=== PATIENT | female | born 1960 | race Caucasian/White ===

== ENCOUNTER 2019-05-02 11:19 | Emergency (ER) | payer BC ==
[2019-05-02] MEDS: NS 0.9% 1000 ML** 1,000 ML IV ONE (13:33)
--- NOTE | 2019-05-02 13:35 | ED ---
Abdominal Pain/Female - HPI Summary HPI Summary: This patient is a 58 year old F presenting to [facility] with a chief complaint of left ABD pain that started about 3 weeks ago. The patient rates the pain 7/10 in severity. Symptoms aggravated by nothing. Symptoms alleviated by nothing. She initially came into her family medicine doctor's office for diverticulitis and left swollen leg. She had an X-ray taken last week with negative results. Her family medicine doctor told her she needed to come to ED to get CT scan. Patient reports fever, SEGAL, nausea, vomiting, constipation, and diarrhea. Patient notes the nausea is currently resolved. She denies neck pain. She does not smoke, use drugs, but drinks occasionally. - History of Current Complaint Chief Complaint: EDAbdPain Stated Complaint: ABD PAIN/HEADACHE/POSS YEAST INFECTION PER PT Time Seen by Provider: 05/02/19 13:01 Hx Obtained From: Patient ?: No Onset/Duration: Lasting Weeks - 3, Still Present Timing: Weeks - 3 Severity Currently: Severe Pain Intensity: 7 Pain Scale Used: 0-10 Numeric Location: Other - left sided Radiates: No Aggravating Factor(s): Nothing Alleviating Factor(s): Nothing Associated Signs and Symptoms: Positive: Fever, Constipation, Nausea - currently resolved, Vomiting, Diarrhea, Other: - positive - SEGAL negative - neck pain Allergies/Adverse Reactions: Allergies Allergy/AdvReac Type Severity Reaction Status Date / Time Sulfa (Sulfonamide Allergy Rash Verified 05/02/19 11:28 Antibiotics) Home Medications: Home Medications Ibuprofen TAB* [Motrin TAB* 600 MG] 600 mg PO Q8H PRN 05/02/19 [History Confirmed 05/02/19] PMH/Surg Hx/FS Hx/Imm Hx Previously Healthy: No Endocrine/Hematology History: Reports: Hx Diabetes Cardiovascular History: Denies: Hx Hypertension History: Denies: Hx Renal Disease EENT History: Denies: Hx Deafness - Surgical History Surgical History: Yes Surgery Procedure, Year, and Place: C-SECTIONS Infectious Disease History: No Infectious Disease History: Denies: Traveled Outside the [place] in Last 30 Days - Family History Known Family History: Positive: Cardiac Disease - father has CAD Negative: Diabetes - Social History Alcohol Use: Occasionally Hx Substance Use: No Substance Use Type: Reports: None Hx Tobacco Use: No Smoking Status (MU): Never Smoked Tobacco Review of Systems Positive: Fever Positive: Abdominal Pain - left-sided, Vomiting, Diarrhea, Nausea - currently resolved, Other - constipation Positive: Other - negative - neck pain Positive: Headache All Other Systems Reviewed And Are Negative: Yes Physical Exam - Summary Physical Exam Summary: VITAL SIGNS: Reviewed. GENERAL: Patient is a well-developed and nourished FEMALE who is lying comfortable in the stretcher. Patient is not in any acute respiratory distress. HEAD AND FACE: No signs of trauma. No ecchymosis, hematomas or skull depressions. No sinus tenderness. EYES: PERRLA, EOMI x 2, No injected conjunctiva, no nystagmus. EARS: Hearing grossly intact. Ear canals and tympanic membranes are within normal limits. MOUTH: Oropharynx within normal limits. NECK: Supple, trachea is midline, no adenopathy, no JVD, no carotid bruit, no c- spine tenderness, neck with full ROM. CHEST: Symmetric, no tenderness at palpation LUNGS: Clear to auscultation bilaterally. No wheezing or crackles. CVS: Regular rate and rhythm, S1 and S2 present, no murmurs or gallops appreciated. ABDOMEN: Soft, LLQ tenderness. No signs of distention. No masses palpated. Bowel sounds are normal. EXTREMITIES: FROM in all major joints, no edema, no cyanosis or clubbing. NEURO: Alert and oriented x 3. No acute neurological deficits. Speech is normal and follows commands. SKIN: Dry and warm. Triage Information Reviewed: Yes Vital Signs On Initial Exam: Initial Vitals Temp Pulse Resp BP Pulse Ox 98.7 F 92 16 197/90 96 05/02/19 11:25 05/02/19 11:25 05/02/19 11:25 05/02/19 11:25 05/02/19 11:25 Vital Signs Reviewed: Yes Diagnostics - Vital Signs Vital Signs Temp Pulse Resp BP Pulse Ox 05/02/19 11:25 98.7 F 92 16 197/90 96 - Laboratory Result Diagrams: 05/02/19 13:42 05/02/19 13:42 Lab Statement: Any lab studies that have been ordered have been reviewed, and results considered in the medical decision making process. - CT Abd/Pel CT Interpretation Completed By: Radiologist Summary of CT Findings: IMPRESSION: 1. NO EVIDENCE FOR ACUTE INTRA-ABDOMINAL ABNORMALITY. 2. THE RIGHT KIDNEY IS LOCATED WITHIN THE PELVIS. 3. MILD HEPATOMEGALY AND HEPATIC STEATOSIS. 4. SMALL HIATAL HERNIA. 5. FIBROID UTERUS. These findings were reviewed by Dr. Corbin. Re-Evaluation - Re-Evaluation First Eval Re-Evaluation Time: 13:30 Comment: I discussed results and discharge home with the patient. Abdominal Pain Fem Course/Dx - Course Course Of Treatment: This patient is a 58 year old F presenting to [facility] with a chief complaint of left ABD pain that started about 3 weeks ago. The patient rates the pain 7/10 in severity. Symptoms aggravated by nothing. Symptoms alleviated by nothing. She initially came into her family medicine doctor's office for diverticulitis and left swollen leg. She had an X-ray taken last week with negative results. Her family medicine doctor told her she needed to come to ED to get a CT scan. Patient reports fever, SEGAL, nausea, vomiting, constipation, and diarrhea. Patient notes the nausea is currently resolved. She denies neck pain. She does not smoke, use drugs, but drinks occasionally. Blood tests do not show any significant abnormalities except for the WBC of 12.5 , leukocytes of 144, and AST of 11. Urinalysis is contaminated but negative for UTI. In the ED course, the patient was given IV fluids and the patient did not require any pain medications. Abdominopelvic CT impression: No evidence for acute intra-or abdominal abnormality. The right kidney is located within the pelvis, mild hepatomegaly and hepatic steatosis. In the ED, the patient felt better. The blood work is found to be within normal limits, and the CT of the abdomen and pelvis showed no kidney stones or diverticulitis. Therefore the patient will be discharged home with follow-up with primary care physician. I discussed all the findings and test results with the patient. Patient was instructed to return to the emergency room immediately if any of the symptoms return or worsen. Plan of care was discussed with the patient. Patient understands and agrees. All questions were answered to the patients satisfaction. There were no further complaints or concerns. Lung exam before discharge: CTA B/L. Good air exchange. No wheezing or crackles heard. CVS: S1 and S2 present. No murmurs appreciated. Patient is alert and oriented x 3. Patient is hemodynamically stable. Patient will be discharged home with follow up with PCP in the next 2-3 days. - Diagnoses Provider Diagnoses: Lower abdominal pain Discharge - Sign-Out/Discharge Documenting (check all that apply): Patient Departure - discharge Patient Received Moderate/Deep Sedation with Procedure: No - Discharge Plan Condition: Stable Disposition: HOME Prescriptions: Hydrocodone/Acetaminophen [[place] 5-325 Tablet] 1 each PO Q8H PRN #10 tablet MDD 4 PRN Reason: Pain Patient Education Materials: Abdominal Pain (ED) Referrals: Maged Schumacher MD [Primary Care Provider] - 3 Days Additional Instructions: FOLLOW UP WITH YOUR PRIMARY CARE PROVIDER WITHIN 2-3 DAYS FOR ABDOMINAL PAIN NOTED TODAY. RETURN TO THE ED FOR ANY WORSENING OR NEW SYMPTOMS. - Billing Disposition and Condition Condition: STABLE Disposition: Home - Attestation Statements Document Initiated by Scribe: Yes Documenting Scribe: Kingsley Glez Provider For Whom Deborah is Documenting (Include Credential): Dr. Kings Corbin MD Scribe Attestation: Kingsley Banegas scrmikeed for Dr. Kings Corbin MD on 05/05/19 at 0733. Scribe Documentation Reviewed: Yes Provider Attestation: The documentation as recorded by the Kingsley foley accurately reflects the service I personally performed and the decisions made by me, Dr. Kings Corbin MD Status of Scribe Document: Viewed
[2019-05-02 13:51] LABS: Hematocrit 43 % (35-47); Hemoglobin 14.2 g/dL (12.0-16.0); Mean Corpuscular HGB Conc 33 g/dL (31-36); Mean Corpuscular Hemoglobin 29 pg (27-31); Mean Corpuscular Volume 86 fL (80-97); Mean Platelet Volume 7.7 fL (7.4-10.4); Platelet Count 337 10^3/uL (150-450); Red Blood Count 4.99 10^6 /uL (3.70-4.87); Red Cell Distribution Width 14 % (10-15); White Blood Count 12.5 10^3/uL (3.5-10.8)
[2019-05-02 14:00] LABS: ABS Basophils 0.1 10^3/ul (0-0.2); ABS Lymphocytes 1.8 10^3/ul (1.0-4.8); ABS Monocytes 0.6 10^3/ul (0-0.8); ABS Neutrophils 9.9 10^3/ul (1.5-7.7); Eosinophil % 0.3 %; Lymphocyte % 14.7 %; Nucleated Red Blood Cells % 0.1
[2019-05-02 14:12] LABS: Albumin 4.1 g/dL (3.2-5.2); BUN/Creatinine Ratio 12.7 (8-20); C Reactive Protein 1.99 mg/L (<8.01); Calcium 9.8 mg/dL (8.6-10.3); EGFR Non-African American 96.7 (>60); Magnesium 2.2 mg/dL (1.9-2.7); Potassium 3.9 mmol/L (3.5-5.0); Total Bilirubin 0.4 mg/dL (0.2-1.0); Total Protein 8.1 g/dL (6.4-8.9)
[2019-05-02 14:58] LABS: Urine Appearance Clear; Urine Bacteria Absent (Absent); Urine Bilirubin Negative (Negative); Urine Blood Negative (Negative); Urine Color Straw; Urine Glucose Negative (Negative); Urine Ketones Negative (Negative); Urine Nitrite Negative (Negative); Urine Protein Negative (Negative); Urine Red Blood Cell Absent (Absent); Urine Specific Gravity 1.005 (1.010-1.030); Urine Squamous Epithelial Cell Present (Absent); Urine Urobilinogen Negative (Negative); Urine White Blood Cell 1+(6-10/hpf) (Absent)
[2019-05-02] MEDS: Iodixanol* (CONTRAST) 320 MG/ML 100 ML SDV IV ONE (15:32)
[2019-05-02 17:07] VITALS: BP 176/82
--- NOTE | 2019-05-05 15:31 | PN ---
Progress Note - Progress Note Date of Service: 05/02/19 Note: Pt. seen in ED 05/02 for abd. pain. Urine culture growing >100k GBS. No report of urinary sxs. Pt. reportedly was recently treated with keflex and cipro. Attempted to call pt. today at 1528, message left. Suspect possible colonization. 1735: Pt. has not returned call. Will send rx for amoxicillin for potential UTI. Will send letter to pt. to return call to ED.
--- NOTE | 2019-05-05 18:31 | PN ---
Progress Note - Progress Note Date of Service: 05/05/19 Note: Spoke with this patient by phone at 1830 on 05/05/19 regarding results of urine culture. Urine culture indicates possible UTI. Prescription for amoxicillin was sent to patient's pharmacy at 1735 today. Apparently, prior attempts to reach patient by phone were not successful. Patient called back and was informed of both results and the presence of a prescription for amoxicillin at her pharmacy. Patient stated she did have itching with urination. Advised to take antibiotics and follow-up with primary care and will return to the ED for any new or worsening symptoms. Patient understands and approves our plan.
== END 2019-05-02 17:10 | disposition home or self-care (01) ==
LOC: ED 11:19
DX: R10.30 Lower abdominal pain, unspecified (principal); R16.0 Hepatomegaly, not elsewhere classified; K76.0 Fatty (change of) liver, not elsewhere classified
CPT/HCPCS: 36415; 74177; 80053; 81003; 81015; 83605; 83690; 83735; 85025; 86140; 87077; 87086; 96360; 96361; 99282; Q9967